=== PATIENT | male | born 1960 | race Caucasian/White ===

== ENCOUNTER 2016-10-21 07:14 | Day surgery (SDC) | payer OTHER ==
[~2016-10-21 07:14] MED LIST: Lactated Ringers 1,000 ML IV SCH; Midazolam 1 MG/ML 2 ML SDV ONE; Propofol 200 MG/20 ML SDV ONE; fentaNYL 100 MCG/2 ML SDV ONE
[2016-10-21] MEDS ORDERED: Lactated Ringers 1,000 ML IV SCH (08:15)
[2016-10-21] MEDS ORDERED: Propofol 200 MG/20 ML SDV ONE (09:27)
[2016-10-21 10:54] VITALS: BP 107/78
--- NOTE | 2016-10-23 09:59 | OR ---
DATE OF PROCEDURE: 10/21/2016 PREOPERATIVE DIAGNOSIS: Colon cancer screening. POSTOPERATIVE DIAGNOSES: Right-sided diverticulosis and small rectal polyp. PROCEDURE PERFORMED: Colonoscopy to the cecum with biopsy resection of small rectal polyp. SURGEON: Rubio Beard MD. ANESTHESIA: IV anesthesia with monitored anesthesia care. INDICATION: This 55-year-old white male is referred for a colonoscopy for colon cancer screening. He has never had a colonoscopic exam. I counseled him for the procedure including risks and alternatives and he gave his informed consent to proceed. DESCRIPTION OF PROCEDURE: The patient was placed in the left lateral decubitus position. IV anesthesia was administered by the Anesthesia Service. Time-out was held. A rectal exam was performed, which was unremarkable. The flexible video Olympus colonoscope was introduced through his anus, up his rectum, and out of his colon all way to the cecum. Once the cecum was reached, the scope was slowly withdrawn examining the mucosa throughout. We saw a few scattered right-sided diverticula. There was no bleeding or inflammation associated with them. The scope was then slowly withdrawn. No other lesions were noted until we reached the rectum. Here a small polyp was seen, which was removed with a couple of bites of the biopsy forceps. The scope was retroflexed in the rectum with the distal rectum appearing unremarkable. The scope was straightened and removed. He tolerated the procedure well. Rubio Beard MD /[id number] MTDD
== END 2016-10-21 10:58 | disposition home or self-care (01) ==
LOC: JP.SDS 07:14
PROVIDERS: ATTEND Surgery
DX: Z12.11 Encounter for screening for malignant neoplasm of colon (principal); D12.8 Benign neoplasm of rectum; K57.30 Diverticulosis of large intestine without perforation or abscess without bleeding; I10 Essential (primary) hypertension
CPT/HCPCS: 45380; J2250; J2704; J3010; J7120; 88305

== ENCOUNTER 2018-12-22 13:46 | Emergency (ER) | payer OTHER ==
[2018-12-22 14:35] VITALS: BP 115/68; PULSE 88
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
[2018-12-22] MEDS ORDERED: Morphine 4 MG/ML Syringe IVPUSH ONE ×3 (14:47→18:10)
[2018-12-22] MEDS ORDERED: Sodium Chloride 0.9% 10 ML Syringe FLUSH ONE (15:09)
[2018-12-22] MEDS ORDERED: Iopamidol 612 MG/ML 150 ML Bottle IV SCH (15:15)
[2018-12-22] MEDS ORDERED: Sodium Chloride 0.9% 1,000 ML IV STA (16:05)
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
== END 2018-12-22 18:45 ==
LOC: JP.ED 13:46
DX: S22.22XA Fracture of body of sternum, initial encounter for closed fracture (principal); S22.059A Unspecified fracture of T5-T6 vertebra, initial encounter for closed fracture; S22.049A Unspecified fracture of fourth thoracic vertebra, initial encounter for closed fracture; S22.039A Unspecified fracture of third thoracic vertebra, initial encounter for closed fracture; M19.90 Unspecified osteoarthritis, unspecified site; E66.9 Obesity, unspecified; Z79.82 Long term (current) use of aspirin; Z79.899 Other long term (current) drug therapy; W22.8XXA Striking against or struck by other objects, initial encounter
CPT/HCPCS: 36415; 71260; 72125; 74177; 80053; 84484; 85025; 85610; 93005; 96361; 96374; 96376; 99285; J2270; J7030

== ENCOUNTER 2019-12-05 07:01 | Day surgery (SDC) | payer OTHER ==
[2019-12-05] MEDS ORDERED: Sodium Chloride 0.9% 1,000 ML IV SCH (07:45)
[2019-12-05] MEDS ORDERED: Propofol 200 MG/20 ML SDV ONE ×2 (08:49→09:03)
[2019-12-05] MEDS ORDERED: fentaNYL 100 MCG/2 ML SDV ONE (08:49)
[2019-12-05] MEDS ORDERED: Midazolam 1 MG/ML 2 ML SDV ONE (08:49)
[2019-12-05 10:27] VITALS: BP 95/69; PULSE 64
--- NOTE | 2019-12-05 11:01 | OR ---
DATE OF PROCEDURE: 12/05/2019 SURGEON: Adeel Degroot MD PROCEDURE: Colonoscopy. FINDINGS: 1. Ascending colon polyp #1, completely removed using hot snare wire device. 2. Ascending colon polyp #2, completely removed using hot snare wire device. 3. Sigmoid colon polyp, approximately 5 mm, completely removed using hot snare wire device. COMPLICATIONS: None. ACOUSTIC SENSOR OPERATOR: None. ANESTHESIA: MAC. PREOPERATIVE DIAGNOSIS: Screening colonoscopy/history of colon polyps. POSTOPERATIVE DIAGNOSIS: Screening colonoscopy/history of colon polyps. RISKS: Risks, benefits, alternatives, and limitations including, but not limited to, infection, bleeding, and perforation were explained to the patient, who wished to proceed. PROCEDURE IN DETAIL: The patient was placed in left lateral decubitus position. Digital rectal exam was performed without abnormality. Scope was introduced and advanced atraumatically to the ileocecal valve. Scope was brought back through the ascending, transverse, descending colon, and retroflexed. The aforementioned polyps were identified and completely removed. No abnormal bleeding was noted after removal. Diverticulosis would be described as mild, limited to sigmoid colon without evidence of diverticulitis or bleeding. No abnormalities on retroflexion. The patient tolerated the procedure well. Adeel Degroot MD /[id number]
== END 2019-12-05 10:28 | disposition home or self-care (01) ==
LOC: JP.SDS 07:01
PROVIDERS: ATTEND Surgery
DX: Z12.11 Encounter for screening for malignant neoplasm of colon (principal); D12.2 Benign neoplasm of ascending colon; D12.5 Benign neoplasm of sigmoid colon; K57.30 Diverticulosis of large intestine without perforation or abscess without bleeding; E78.5 Hyperlipidemia, unspecified; E66.9 Obesity, unspecified; I12.9 Hypertensive chronic kidney disease with stage 1 through stage 4 chronic kidney disease, or unspecified chronic kidney disease; N18.3 Chronic kidney disease, stage 3 (moderate); Z86.010 Personal history of colon polyps; Z98.890 Other specified postprocedural states
CPT/HCPCS: 45385; 88305; J2250; J2704; J3010; J7030

== ENCOUNTER 2022-11-03 07:46 | Day surgery (SDC) | payer OTHER ==
[2022-11-03] MEDS ORDERED: Propofol 200 MG/20 ML SDV ONE ×2 (07:59→09:18)
[2022-11-03] MEDS ORDERED: Midazolam 1 MG/ML 2 ML SDV ONE (07:59)
[2022-11-03] MEDS ORDERED: fentaNYL 50 MCG/ML SDV ONE (07:59)
[2022-11-03] MEDS ORDERED: Sodium Chloride 0.9% 1,000 ML IV SCH (08:30)
[2022-11-03 10:17] VITALS: BP 119/79; PULSE 54
== END 2022-11-03 10:21 | disposition home or self-care (01) ==
LOC: JP.SDS 07:46
PROVIDERS: ATTEND Surgery
DX: Z12.11 Encounter for screening for malignant neoplasm of colon (principal); D12.0 Benign neoplasm of cecum; I12.9 Hypertensive chronic kidney disease with stage 1 through stage 4 chronic kidney disease, or unspecified chronic kidney disease; N18.9 Chronic kidney disease, unspecified; E78.5 Hyperlipidemia, unspecified; K21.9 Gastro-esophageal reflux disease without esophagitis; E66.9 Obesity, unspecified; Z79.899 Other long term (current) drug therapy; Z68.34 Body mass index [BMI] 34.0-34.9, adult
CPT/HCPCS: 45385; 88305; J2250; J2704; J3010; J7030